=== PATIENT | female | born 1960 | race Caucasian/White ===

== ENCOUNTER → 2018-08-30 | Outpatient (CLI) | payer SELFPAY | LOC: OD 16:44 | PROVIDERS: ATTEND Nurse Practitioner Acute Care | DX: N39.0 Urinary tract infection, site not specified (principal) | CPT/HCPCS: 87086 ==

== ENCOUNTER 2019-10-21 13:06 | Emergency (ER) | payer SELFPAY ==
[2019-10-21] MEDS ORDERED: DOCUSATE SODIUM 100 MG CAPSULE BTH_EAR ONE (15:09)
--- NOTE | 2019-10-21 15:09 | ER Document Report ---
HPI - HPI Time Seen by Provider: 10/21/19 15:01 Pain Level: Denies Notes: Otherwise healthy 58-year-old female presents emergency department with bilateral ear discomfort. Patient reports it feels like "hollow numbness in my head". Patient reports this pain/discomfort has been going on for several days. She states she tried irrigating her ears. She denies any fevers or drainage from her ears. - EENT EENT: DENIES: Sore Throat, Ear Pain, Eye problems - CARDIOVASCULAR Cardiovascular: DENIES: Chest pain - RESPIRATORY Respiratory: DENIES: Trouble Breathing, Coughing - GASTROINTESTINAL Gastrointestinal: DENIES: Black / Bloody Stools - REPRODUCTIVE Reproductive: DENIES: : Past Medical History - General Information source: Patient - Social History Smoking Status: Never Smoker Chew tobacco use (# tins/day): No Drug Abuse: None Family History: Reviewed & Not Pertinent Patient has suicidal ideation: No Patient has homicidal ideation: No - Past Medical History Cardiac Medical History: Reports: Hx Hypertension Denies: Hx Coronary Artery Disease Renal/ Medical History: Reports: Hx Kidney Stones - With lithotripsy Past Surgical History: Reports: Hx Section - x2, Hx Kidney (Renal Surgery) - lithotripsy - Immunizations Hx Diphtheria, Pertussis, Tetanus Vaccination: No Vertical Provider Document - CONSTITUTIONAL Notes: PHYSICAL EXAMINATION: GENERAL: Well-appearing, well-nourished and in no acute distress. HEAD: Atraumatic, normocephalic. EYES: Pupils equal round extraocular movements intact, conjunctiva are normal. ENT: Unable to visualize bilateral TMs, copious cerumen noted. NECK: Normal range of motion LUNGS: No respiratory distress Musculoskeletal: Normal range of motion NEUROLOGICAL: Normal speech, normal gait. PSYCH: Normal mood, normal affect. SKIN: Warm, Dry, normal turgor, no rashes or lesions noted. - INFECTION CONTROL TRAVEL OUTSIDE OF THE [place] IN LAST 30 DAYS: No Course - Re-evaluation Re-evalutation: Ear irrigation was performed, cerumen removed, patient reports feels much improved. Bilateral TMs unremarkable. Patient be discharged home at this time. - Vital Signs Vital signs: Temp Pulse Resp BP Pulse Ox 97.7 F 61 16 161/87 H 100 10/21/19 14:58 10/21/19 14:58 10/21/19 14:58 10/21/19 14:58 10/21/19 14:58 Discharge - Discharge Clinical Impression: Cerumen impaction Qualifiers: Laterality: bilateral Qualified Code(s): H61.23 - Impacted cerumen, bilateral Condition: Stable Disposition: HOME, SELF-CARE Additional Instructions: Cerumen Impaction The physician found a severe buildup of earwax in your ear canal, called a cerumen impaction. A large plug of wax can cause earache, decreased hearing, or itching. It can even lead to infection of the outer ear. An impaction of earwax can be removed by the physician using special instruments, or can be irrigated out using a stream of water (often a little of both is required). Some less severe impactions are removed using ear drops that dissolve wax. In the future, don't get soap in your ear canal. Soap doesn't remove wax -- it simply hardens it in place. Don't use cotton swabs. These just push the wax into large clumps, where it doesn't flow out normally. Dust and smoke also contribute to wax buildup. Earwax softening drops are available without prescription, and can be used periodically. Contact the doctor if you develop decreased hearing, earache, drainage from the ear, or severe headache. Referrals: BASILIO SHINE NP [Primary Care Provider] - Follow up as needed
[2019-10-21 17:25] VITALS: BP 154/82
== END 2019-10-21 17:26 | disposition home or self-care (01) ==
LOC: ER 13:06
DX: H61.23 Impacted cerumen, bilateral (principal); I10 Essential (primary) hypertension
CPT/HCPCS: 99282

== ENCOUNTER 2020-05-20 11:04 | Emergency (ER) | payer SELFPAY ==
[2020-05-20] MEDS ORDERED: RINGERS SOLUTION,LACTATED 1,000 ML IV ONE (14:21)
--- NOTE | 2020-05-20 14:29 | ER Document Report ---
ED General - General Chief Complaint: Pain All Over Stated Complaint: BODY ACHES,DIARRHEA Time Seen by Provider: 05/20/20 14:02 Primary Care Provider: BASILIO SHINE NP [Primary Care Provider] - Follow up as needed Notes: CHIEF COMPLAINT: Myalgia diarrhea back pain for 5 days HPI: 59-year-old female presenting to the emergency department with multiple complaints. Patient states she began with symptoms that are consistent with UTI issues she has had chronically in the past with myalgias and low back pain 5 days ago. No abdominal pain no vomiting. Patient then developed nausea and 3 days ago went to [facility] urgent care. Patient states that they told her her urine dip did not show evidence of infection but still placed her on Cipro while culturing the urine. Patient states today she feels no better she has had increased nausea and low back pain. She has had multiple episodes of diarrhea. No active vomiting no definitive fevers. Patient states she has history of kidney stones although she does not have unilateral back pain at this time states that she has been septic with a UTI previously in [place] several years ago. Patient states she did develop a mild frontal headache yesterday. Denies neck pain ROS: See HPI - all other systems were reviewed and are otherwise negative Constitutional: no fever Eyes: no drainage, no blurred vision ENT: no runny nose, no sore throat Cardiovascular: no chest pain Resp: no SOB, no cough GI: no vomiting, + diarrhea, no abdominal pain, positive nausea : no dysuria Integumentary: no rash Allergy: no hives Musculoskeletal: no swelling , positive myalgia Neurological: no numbness/tingling, no weakness, positive headache MEDICATIONS: I agree with the patient medications as charted by the RN. ALLERGIES: I agree with the allergies as charted by the RN. PAST MEDICAL HISTORY/PAST SURGICAL HISTORY: Reviewed and agree as charted by RN. SOCIAL HISTORY: Reviewed and agree as charted by RN. FAMILY HISTORY: No significant familial comorbid conditions directly related to patient complaint EXAM: Reviewed vital signs as charted by RN. CONSTITUTIONAL: Alert and oriented and responds appropriately to questions. Well-appearing; well-nourished HEAD: Normocephalic; atraumatic EYES: PERRL; Conjunctivae clear, sclerae non-icteric ENT: normal nose; no rhinorrhea; moist mucous membranes; pharynx without lesions noted, no uvula edema or deviation, no tonsillar hypertrophy, phonation normal NECK: Supple without meningismus; non-tender; no cervical lymphadenopathy, no masses CARD: RRR; no murmurs, no clicks, no rubs, no gallops; symmetric distal pulses RESP: Normal chest excursion without splinting or tachypnea; breath sounds clear and equal bilaterally; no wheezes, no rhonchi, no rales, pulse oximetry 98% room air not hypoxic ABD/GI: Normal bowel sounds; non-distended; soft, non-tender, no rebound, no guarding; no palpable organomegaly or masses. BACK: The back appears normal and is non-tender to palpation, there is no CVA tenderness EXT: Normal ROM in all joints; non-tender to palpation; no cyanosis, no effusions, no edema SKIN: Normal color for age and race; warm; dry; good turgor; no acute lesions noted NEURO: Moves all extremities equally; Motor and sensory function intact PSYCH: The patient's mood and manner are appropriate. Grooming and personal hygiene are appropriate. MDM: 59-year-old female who is a poor historian presenting essentially for low back pain myalgia possibly partially treated UTI. Has been on antibiotics for 3 days states that she was told in the past that she had a difficult to treat urinary issue. Patient could also have diverticulitis or other intra-abdominal concerns although she has no reproducible abdominal pain. Will obtain screening labs include lactic acid given her sepsis history will hydrate patient and plan for CT imaging TRAVEL OUTSIDE OF THE [place] IN LAST 30 DAYS: No - Related Data Allergies/Adverse Reactions: No Known Allergies Allergy (Verified 10/21/19 14:58) Past Medical History - Social History Smoking Status: Unknown if Ever Smoked Family History: Reviewed & Not Pertinent - Past Medical History Cardiac Medical History: Reports: Hx Hypertension Denies: Hx Coronary Artery Disease Renal/ Medical History: Reports: Hx Kidney Stones - With lithotripsy Past Surgical History: Reports: Hx Section - x2, Hx Kidney (Renal Surgery) - lithotripsy - Immunizations Hx Diphtheria, Pertussis, Tetanus Vaccination: No Physical Exam - Vital signs Vitals: Temp Pulse Resp BP Pulse Ox 98.4 F 95 16 145/76 H 100 05/20/20 11:20 05/20/20 11:20 05/20/20 11:20 05/20/20 11:20 05/20/20 11:20 Course - Re-evaluation Re-evalutation: 05/20/20 15:54 Patient noted to have a BUN of 40 creatinine of 2.8, last creatinine obtained on the patient several years ago was normal. I am aggressively hydrating the patient. Review of her prior urine results and culture showed Klebsiella pneumonia previously that was sensitive to Cipro 05/20/20 19:[address] Blanco allergy. We discussed the patient's imaging studies and results, lab work. He feels that patient's creatinine is likely from dehydration from her vomiting. Request that we aggressively hydrate the patient which has already been done request that she stop Cipro. He does not believe patient needs transfer at this time but may require stenting, he believes this may be done outpatient and scheduled outpatient. He wishes the patient to call the office at 8 AM in the morning and they will see the patient in the office tomorrow to discuss this with her. I discussed this at length with the patient who is comfortable with this plan. She does not wish to be admitted or transferred if possible. - Vital Signs Vital signs: Temp Pulse Resp BP Pulse Ox 97.7 F 70 18 142/75 H 100 05/20/20 17:01 05/20/20 17:01 05/20/20 17:01 05/20/20 17:01 05/20/20 17:01 - Laboratory Result Diagrams: 05/20/20 14:40 05/20/20 14:40 Laboratory results interpreted by me: 05/20/20 05/20/20 05/20/20 14:40 14:40 14:40 RDW 14.7 H BUN 40 H Creatinine 2.80 H Est GFR ( Amer) 21 L Est GFR (MDRD) Non-Af 17 L Urine Ketones TRACE H Urine Blood SMALL H Ur Leukocyte Esterase SMALL H Discharge - Discharge Clinical Impression: Kidney stone on right side, HERNANDO (acute kidney injury), Dehydration Condition: Stable Disposition: HOME, SELF-CARE Additional Instructions: Continue to push fluids at home. Take Zofran for nausea Percocet for pain. Avoid ibuprofen or anti-inflammatories. You need to call the urology office by 8 AM tomorrow morning they should see you in the office tomorrow per Dr. Blnaco whom we spoke with lula. If you will have onset of fever or worsening symptoms you are to go to [facility] emergency department per Dr. Blanco's instructions Prescriptions: Oxycodone HCl/Acetaminophen [Percocet 5-325 mg Tablet] 1 tab PO Q4H PRN #15 tab PRN Reason: Ondansetron [Zofran Odt 4 mg Tablet] 1 - 2 tab PO Q4H PRN #15 tab.rapdis PRN Reason: For Nausea/Vomiting Referrals: BASILIO SHINE NP [Primary Care Provider] - Follow up as needed ERIN BLANCO MD [NO LOCAL MD] - Follow up as needed
[2020-05-20 15:05] LABS: ABSOLUTE EOSINOPHILS # (AUTO) 0.1 10^3/uL (0.0-0.6); ABSOLUTE LYMPHOCYTES (AUTO) 1.2 10^3/uL (0.5-4.7); ABSOLUTE MONOCYTES (AUTO) 0.4 10^3/uL (0.1-1.4); ABSOLUTE NEUT (AUTO) 2.3 10^3/uL (1.7-8.2); BASOPHILS % (AUTO) 0.9 % (0-2); EOSINOPHILS % (AUTO) 2.8 % (0-6); HEMATOCRIT 38.6 % (36.0-47.0); LYMPHOCYTES % (AUTO) 29.6 % (13-45); MEAN CORPUSCULAR HEMOGLOBIN 28.1 pg (27.0-33.4); MEAN CORPUSCULAR HGB CONC 33.7 g/dL (32.0-36.0); MEAN CORPUSCULAR VOLUME 83 fl (80-97); MONOCYTES % (AUTO) 10.1 % (3-13); PLATELET COUNT 285 10^3/uL (150-450); RED BLOOD COUNT 4.64 10^6/uL (3.72-5.28); RED CELL DISTRIBUTION WIDTH 14.7 % (11.5-14.0); SEGMENTED NEUTROPHILS % (AUTO) 56.6 % (42-78); TOTAL CELLS COUNTED % (AUTO) 100 %
[2020-05-20 15:19] LABS: APPEARANCE,URINE SLIGHTLY-CLOUDY; BILIRUBIN,URINE NEGATIVE (NEGATIVE); COLOR,URINE YELLOW; GLUCOSE, URINE NEGATIVE (NEGATIVE); KETONES,URINE TRACE mg/dL (NEGATIVE); LEUKOCYTE ESTERASE,URINE SMALL (NEGATIVE); NITRITE,URINE NEGATIVE (NEGATIVE); PROTEIN,URINE NEGATIVE (NEGATIVE); URINE SPECIFIC GRAVITY 1.012; UROBILINOGEN,URINE NEGATIVE mg/dL (<2.0)
[2020-05-20 15:27] LABS: ALBUMIN 4.5 g/dL (3.5-5.0); ALKALINE PHOSPHATASE 61 U/L (38-126); ANION GAP 10 (5-19); ASPARTATE AMINO TRANSFERASE 32 U/L (14-36); BILIRUBIN,DIRECT 0.1 mg/dL (0.0-0.4); BILIRUBIN,TOTAL 0.4 mg/dL (0.2-1.3); BLOOD UREA NITROGEN 40 mg/dL (7-20); CALCIUM 9.8 mg/dL (8.4-10.2); CARBON DIOXIDE 25 mmol/L (22-30); CHLORIDE 104 mmol/L (98-107); GLUCOSE 95 mg/dL (75-110); POTASSIUM 3.8 mmol/L (3.6-5.0); TOTAL PROTEIN 7.9 g/dL (6.3-8.2)
[2020-05-20] MEDS ORDERED: NORMAL SALINE 1000 ML 1,000 ML IV ONE (15:30)
--- NOTE | 2020-05-20 18:27 | RADIOLOGY REPORT (SQ) ---
EXAM DESCRIPTION: CT ABD/PELVIS NO ORAL OR IV IMAGES COMPLETED DATE/TIME: 05/20/2020 4:19 pm REASON FOR STUDY: back pain kidney stone hx. COMPARISON: None. TECHNIQUE: CT scan of the abdomen and pelvis performed without intravenous or oral contrast. Images reviewed with lung, soft tissue, and bone windows. Reconstructed coronal and sagittal MPR images revi ewed. All images stored on PACS. All CT scanners at this facility use dose modulation, iterative reconstruction, and/or weight based d osing when appropriate to reduce radiation dose to as low as reasonably achievable (ALARA). [facility]: Dose Right [facility]: CareDose [facility]: Dose Right [facility]: Teradose 4D [facility]: Smart Pop.it RADIATION DOSE: CT Rad equipment meets quality standard of care and radiation dose reduction techniq ues were employed. CTDIvol: 6.0 mGy. DLP: 337 mGy-cm.mGy. LIMITATIONS: None. FINDINGS: LOWER CHEST: No significant findings. No nodules or infiltrates. NON-CONTRASTED LIVER, SPLEEN, ADRENALS: Evaluation limited by lack of IV contrast. No identified sign ificant masses. PANCREAS: No masses. No peripancreatic inflammatory changes. GALLBLADDER: No identified stones by CT criteria. No inflammatory changes to suggest cholecystitis. RIGHT KIDNEY AND URETER: There is severe right hydronephrosis and hydroureter with an obstructing 9 m m distal right ureteral calculus. No other obstructing or nonobstructing renal or ureteral calculi. No definite solid mass. No perinephric fluid. LEFT KIDNEY AND URETER: No suspicious masses. Assessment limited by lack of IV contrast. Nonobstruc ting 4 mm left inferior pole renal calculus. Additional punctate midpole renal calculi. No obstruct ing renal or ureteral calculus. No hydronephrosis or hydroureter. AORTA AND RETROPERITONEUM: No aneurysm. No retroperitoneal masses or adenopathy. BOWEL AND PERITONEAL CAVITY: No obvious masses or inflammatory changes. No free fluid. APPENDIX: Normal. PELVIS, BLADDER, AND ABDOMINAL WALL:No abnormal masses. No free fluid. Bladder normal. BONES: No significant findings. OTHER: No other significant finding. IMPRESSION: 1. 9 mm obstructing distal right ureteral calculus with severe right hydronephrosis and hydroureter. 2. Additional nonobstructing left renal calculi. COMMENT: Quality ID # [id number]: Final reports with documentation of one or more dose reduction techniques (e.g., Automated exposure control, adjustment of the mA and/or kV according to patient size, use of iterative reconstruction technique) TECHNICAL DOCUMENTATION: JOB ID: [id number] 2010 [employer]- All Rights Reserved Reading location - IP/workstation name: [email or web address]
[2020-05-20] MEDS ORDERED: CEFTRIAXONE 1 GM/D5W RTU 1 GM/50 ML RTUPB IV ONE (18:30)
[2020-05-20 19:43] VITALS: BP 147/84
[2020-05-20] MEDS ORDERED: ONDANSETRON 4 MG TAB.RAPDIS PO ONE (19:46)
== END 2020-05-20 19:51 | disposition home or self-care (01) ==
LOC: ER 11:04
DX: N20.0 Calculus of kidney (principal); N17.9 Acute kidney failure, unspecified; E86.0 Dehydration; M79.10 Myalgia, unspecified site; R19.7 Diarrhea, unspecified; M54.9 Dorsalgia, unspecified; M54.5 Low back pain; I10 Essential (primary) hypertension
CPT/HCPCS: 99284; 96361; 96365; 36415; 87040; 87086; 83605; 85025; 80053; 81001; 74176; S0119; J7030; J7120; J0696